=== PATIENT | female | born 1965 | race Caucasian/White ===

== ENCOUNTER 2018-04-23 13:56 | Emergency (ER) | payer MEDICARE ==
[~2018-04-23] VITALS: Ht 170.2 cm; Wt 98.2 kg
[2018-04-23 14:00] VITALS: Ht 170.2 cm; Wt 98.2 kg
[2018-04-23] MEDS ORDERED: RITALIN10 MG (14:08)
[2018-04-23] MEDS ORDERED: LAMICTAL100 MG (14:08)
[2018-04-23] MEDS ORDERED: NORVASC10 MG (14:09)
[2018-04-23] MEDS ORDERED: GLUCOPHAGE500 MG (14:09)
[2018-04-23] MEDS ORDERED: XANAX0.5 MG (14:09)
[2018-04-23] MEDS ORDERED: ROBAXIN500 MG (14:09)
[2018-04-23] MEDS ORDERED: HCTZ25 MG (14:10)
[2018-04-23] MEDS ORDERED: CELEXA20 MG (14:10)
[2018-04-23] MEDS ORDERED: LIPITOR20 MG (14:10)
[2018-04-23] MEDS ORDERED: MOBIC7.5 MG PO (14:11)
[2018-04-23] MEDS ORDERED: NEURONTIN 300300 MG (14:11)
[2018-04-23] MEDS ORDERED: HYDROCODON-ACE1 EAC7 PO (15:10)
[2018-04-23 15:52] VITALS: BP 163/74
== END 2018-04-23 15:53 | disposition home or self-care (01) ==
LOC: D.ER 13:56
DX: S00.12XA Contusion of left eyelid and periocular area, initial encounter (principal); W22.8XXA Striking against or struck by other objects, initial encounter; Y93.89 Activity, other specified; Y92.89 Other specified places as the place of occurrence of the external cause; G47.419 Narcolepsy without cataplexy; E11.9 Type 2 diabetes mellitus without complications; I10 Essential (primary) hypertension